=== PATIENT | male | born 1945 | race Caucasian/White ===

== ENCOUNTER 2023-04-25 08:44 | Outpatient (CLI) | payer MEDICARE, MEDICAID | END 2023-04-25 09:20 | LOC: SLEEP 08:44 | PROVIDERS: ATTEND Nurse Practitioner Gerontology | DX: G47.33 Obstructive sleep apnea (adult) (pediatric) (principal); R09.02 Hypoxemia | CPT/HCPCS: G0399 ==

== ENCOUNTER 2023-08-11 20:50 | Outpatient (CLI) | payer MEDICARE, MEDICAID | END 2023-08-12 05:46 | LOC: SLEEP 20:50 | PROVIDERS: ATTEND Nurse Practitioner Gerontology | DX: G47.33 Obstructive sleep apnea (adult) (pediatric) (principal); R06.83 Snoring | CPT/HCPCS: 95811 ==